=== PATIENT | female | born 1965 | race Caucasian/White ===

== ENCOUNTER 2022-04-19 08:04 | Outpatient (CLI) | payer BC | END 2022-04-19 08:05 | disposition home or self-care (01) | LOC: CSHMRI 08:04 | PROVIDERS: ATTEND Family Medicine | DX: M54.16 Radiculopathy, lumbar region (principal); M47.816 Spondylosis without myelopathy or radiculopathy, lumbar region | CPT/HCPCS: 72148 ==

== ENCOUNTER 2025-02-10 08:41 | Outpatient (CLI) | payer BC | END 2025-02-10 08:42 | disposition home or self-care (01) | LOC: CSHULT 08:41 | PROVIDERS: ATTEND Student in an Organized Health Care Education/Training Program | DX: R79.89 Other specified abnormal findings of blood chemistry (principal); K80.20 Calculus of gallbladder without cholecystitis without obstruction; K76.9 Liver disease, unspecified | CPT/HCPCS: 76705; 93976 ==